=== PATIENT | male | born 1950 | race Caucasian/White ===

== ENCOUNTER 2018-02-28 08:00 | Day surgery (SDC) | payer OTHER ==
[2018-02-28] MEDS ORDERED: NS 1,000 ML IV ONE (08:06)
[2018-02-28] MEDS ORDERED: FAMOTIDINE 20 MG/NACL 50 ML IV ONE (08:06)
[2018-02-28] MEDS ORDERED: BACITRACIN IRRIGATION/NS 50,000 UNITS/1,000 ML BTL IRR ONE (08:06)
[2018-02-28] MEDS ORDERED: methylPREDNISolone SOD SUCC 125 MG/2 ML VIAL IVP ONE (08:06)
[2018-02-28] MEDS ORDERED: DIAZEPAM 5 MG TAB PO ONE (08:06)
--- NOTE | 2018-02-28 08:26 | CPEKG ---
Heart Rate: 76 RR Interval: 789 P-R Interval: 156 QRSD Interval: 164 QT Interval: 500 QTC Interval: 563 QRS [place]: 88 T Wave [place]: 264 EKG Severity - ABNORMAL ECG - EKG Impression: ATRIAL-VENTRICULAR DUAL-PACED COMPLEXES EKG Impression: NONSPECIFIC INTRAVENTRICULAR CONDUCTION DELAY EKG Impression: NONSPECIFIC ST DEPRESSION Electronically Signed By: Dmaien Alvarado 01-Mar-2018 09:29:06
[2018-02-28 08:48] LABS: PLATELET COUNT 142 10^3/uL (150-400)
[2018-02-28 08:56] LABS: INR 1.04 (0.83-1.16); PROTIME(PATIENT) 13.8 SEC (12.0-15.0)
[2018-02-28] MEDS ORDERED: VANCOMYCIN 1 GM in NS 250 ML IV ONE (09:00)
[2018-02-28] MEDS ORDERED: LIDOCAINE 1% 300 MG/30 ML SDV ONE (09:03)
[2018-02-28] MEDS ORDERED: fentaNYL 100 MCG/2 ML INJ ONE (09:03)
[2018-02-28] MEDS ORDERED: MIDAZOLAM 2 MG/2 ML VIAL ONE (09:04)
[2018-02-28] MEDS ORDERED: LIDO/EPI 1% **for epidural** 30 ML SDV ONE (09:04)
[2018-02-28] MEDS ORDERED: BUPIVACAINE 0.5% 30 ML SDV ONE (09:04)
--- NOTE | 2018-02-28 09:34 | PDHPUP ---
History & Physical Update H&P update statement: This history and physical update is based on an assessment of the patient which was completed after admission or registration (within 24 hours), but prior to the surgery/procedure. H&P update: H&P reviewed & patient examined (patients device has reached RAFA), no change in patient's condition since H&P completed
--- NOTE | 2018-02-28 09:34 | PDPROPOC ---
Sedation Plan of Care Sedation Plan of Care: vital signs stable, mental status noted, patient educated of risks, benefits, alternatives, patient can tolerate sedation ASA Classification: ASA 3 Planned drugs: fentanyl, midazolam Mallampati Score: Class 3 Mallampati Reference Image: Patient passed 3-3-2 rule?: Yes
--- NOTE | 2018-02-28 09:54 | PDGENHP ---
History & Physical Chief Complaint: device RAFA History of Present Illness: Coy is a 67-year-old male with a history of CHF, valve related cardiomyopathy, coarctation reapir, ventricular tachycardia with defibrillator, aortic valve stenosis s/p AVR, coronary artery disease. The patient is on ocean transportation intermediary anticoagulation therapy. Coy is able to exercise daily without chest pain/pressure/tightness or lightheadedness. He has not noticed a decrease in his exercise tolerence. Cyo had his device interrogated 08/12/17 that demonstrated the device was near RAFA. There were no atrial arrhythmias recorded, no ventricular arrhythmias recorded, normal pacing thersholds, normal sensing thersholds, acceptable pacing parameters. Coy needs to have a gen change. We have arranged for this to be changed while I am in the hospital Pertinent Past, Social, Family History: CHF, valve related cardiomyopathy, coarctation reapir, ventricular tachycardia with defibrillator, aortic valve stenosis s/p AVR, coronary artery disease. Relevant Physical Exam: Cardiac: The patient has a systolic murmur consistent with valve surgery. Summation S3, S4. No peripheral edema. Respiratory: Clear to auscultation bilaterally. Cardiorespiratory Assessment: Please see above.
--- NOTE | 2018-02-28 10:13 | EPPROC ---
Electrophysiology Procedure Note: PROCEDURE: MRI conditional Bi-ventricular automatic implantable cardioverter- defibrillator gen change. DATE OF PROCEDURE: 02/28/2018 EXPLANTED DEVICE: LOADING MANAGER-D [employer] Unify 3231-40, serial #[id number]. IMPLANTED DEVICE: [employer] UN[employer] ASSURA, serial #[id number]. LEADS: The right atrial lead is a Tendril SDX 1688TC/ 52 cm, serial # [id number]. The right ventricular lead is a Riata 1581, serial # [id number]. The LV lead is a QuickSite 1056T/75 cm, serial #[id number]. COMPLICATIONS: None GIS ENGINEER: Sudheer Vazquez MD INDICATION AND APPROPRIATE USE CRITERIA: The device is being replaced for RAFA alerts. The device is being used as a primary prevention. The patient has complex ventricular ectopy with reduced EF <35% and heart failure symptoms. The device was originally replaced on 08/27/2011 for second degree heart block. PROCEDURE IN DETAIL: After informed consent was obtained and n.p.o. status was confirmed, the region of the left subclavicular fossa was cleaned, prepped and draped in a sterile fashion. Approximately 30 mL of 1% lidocaine was utilized for local anesthesia. The skin was sharply incised with a #10 blade. Electrocautery and local pressure were used for hemostasis. Sharp and blunt dissection was used to access the AICD pocket overlying the pectoralis major fascia. The pocket was thoroughly flushed and checked for bleeding. Hemostasis was established and the old device was removed from the pocket. The atrial and ventricular leads set screws were loosened. The atrial lead serial number was checked and placed in the upper pole lead housing of the new pulse generator and set screw firmly applied. The procedure was repeated for the RV lead, LV lead and defibrillator coils with the bipolar set screw. RV lead threshold was tested and found to be 1.0 V at 0.5 ms width. R -wave amplitude was measured at 12 mV. Lead impedance was 390 Ohms. LV lead threshold was tested and found to be 1.25 V at 0.5 ms width. Lead impedance was 680 Ohms. Atrial lead threshold was tested at 2.75 V at 0.5 ms width. P- wave amplitude was 1.3 mV, lead impedance was 440 Ohms. Defibrillator shock impedance 47 Ohms. The device was placed in the pocket and sutured in place with #0 Ethibond. The skin was closed with a 3-layered 3-0 Vicryl, 2-0 Vicryl and 4-0 Monocryl repair with excellent wound edge opposition and hemostasis documented. The V fib zone is set at 187 BPM with ATP x 1 only if the rhythm meets stability criteria (12 cycles) otherwise the device will deliver a 36 Joule shocks x 1 cycles followed by 40 Joule x 5 if needed. The V tach zone is 166 bpm with ATP x3. The device will deliver CVRT 25 Joule shocks x1, 36 joule shocks x1, follow by 40 Joule x2 if needed. The patient returned to the post cath recovery unit in good and stable condition where a stat postoperative chest x-ray and EKG were obtained. There was no evidence of pneumothorax and the wires appeared to be in stable position. The patient returned to the post cath recovery unit in good and stable condition where a stat postoperative EKG will be obtained. FINAL IMPRESSION: Successful elective Bi-Ventricular AICD generator replacement without immediate complication. Patient Problems: Problems Problem Status Onset Left ventricular apical thrombus Acute S/P CABG x 2 Acute S/P aortic valve replacement with bioprosthetic valve Acute S/P mitral valve repair Acute Bicuspid aortic valve Chronic CAD (coronary artery disease), [place] coronary artery Chronic Nonischemic dilated cardiomyopathy Chronic Presence of automatic cardioverter/defibrillator (AICD) Chronic Secondary mitral valve insufficiency Chronic Severe aortic valve stenosis Chronic Thrombocytopenia Chronic
--- NOTE | 2018-02-28 11:35 | CPEKG ---
Heart Rate: 75 RR Interval: 800 P-R Interval: 204 QRSD Interval: 162 QT Interval: 452 QTC Interval: 505 P [place]: -41 QRS [place]: -86 T Wave [place]: -69 EKG Severity - ABNORMAL ECG - EKG Impression: ATRIAL-VENTRICULAR DUAL-PACED RHYTHM Electronically Signed By: Damien Alvarado 01-Mar-2018 09:28:57
== END 2018-02-28 13:47 | disposition home or self-care (01) ==
LOC: FCATH 08:00
PROVIDERS: ATTEND Internal Medicine Cardiovascular Disease
DX: Z45.02 Encounter for adjustment and management of automatic implantable cardiac defibrillator (principal); Z95.810 Presence of automatic (implantable) cardiac defibrillator; I25.10 Atherosclerotic heart disease of native coronary artery without angina pectoris; I50.9 Heart failure, unspecified; Z79.01 Long term (current) use of anticoagulants; Z95.2 Presence of prosthetic heart valve
CPT/HCPCS: C1882; J2250; J3010; J3370

== ENCOUNTER → 2018-04-18 | Outpatient (CLI) | payer OTHER | LOC: FIMAGING 07:05 | PROVIDERS: ATTEND Internal Medicine Cardiovascular Disease | DX: K75.9 Inflammatory liver disease, unspecified (principal); K80.20 Calculus of gallbladder without cholecystitis without obstruction ==

== ENCOUNTER → 2019-01-01 | Day surgery (SDC) | payer OTHER ==
--- NOTE | 2019-01-01 11:53 | PDPROPOC ---
Sedation Plan of Care Sedation Plan of Care: vital signs stable, mental status noted, patient educated of risks, benefits, alternatives, patient can tolerate sedation ASA Classification: ASA 3 Planned drugs: other (no sedation) Mallampati Score: Class 2 Mallampati Reference Image: Patient passed 3-3-2 rule?: Yes
--- NOTE | 2019-01-01 11:54 | PDHPUP ---
History & Physical Update H&P update statement: This history and physical update is based on an assessment of the patient which was completed after admission or registration (within 24 hours), but prior to the surgery/procedure. H&P update: H&P reviewed & patient examined, no change in patient's condition since H&P completed (pt has lead noise suspicious for fracture. needs fluoroscopy of lead to rule out fracture.)
--- NOTE | 2019-01-01 12:53 | CPIP ---
[f rep st] INVASIVE CARDIAC PROCEDURE DATE OF PROCEDURE: 01/01/2019 PROCEDURE PERFORMED: Cinefluoroscopy of a right ventricular Guilherme lead. INDICATION FOR PROCEDURE: Ventricular lead malfunction with evidence of noise on the ventricular katarzyna d. PROCEDURE IN DETAIL: After informed consent was obtained, discussing the risk of medical radiation t o patient, the patient was taken the cardiac catheterization laboratory. He was placed on the table and cinefluoroscopy in a rotating fashion was performed documenting externalization of part of the le ad near the acute margin of the heart where the normal elbow would be placed in a ventricular dual co il defibrillator lead. There was obviously externalization of part of the conductor in that region. The right atrial and right ventricular lead body do appear to be moving together during cinefluorosc opy suggestive of possible fibrotic union of those 2 leads related to scar tissue, which may compound trying to remove the ventricular lead even with a laser. Risks, benefits of the various procedures will need to be discussed. Certainly, the device lead needs to be capped at a minimum and a new lead placed to avoid shock related to an inappropriate shock related to noise noticed on the ventricular lead. FINAL IMPRESSION: Externalization of conductor of the Guilherme dual coil ventricular lead. The patient would like to wait to have this problem dealt with until after the ski season is over in approximately 3 or 4 weeks, and as long as the noise is not getting worse, I do think the device woul d deliver a shock appropriately because it does not appear that there is an interruption of the condu ctor and the way lead was built was with individual insulation around that particular wire. I did ex plain to the patient that if he enters into a ventricular fibrillation storm from the device's standp oint where the noise is lasting so long that the device charges and shocks him, that the best thing f or him to do would be to hold a magnet over the device, which would prevent the device from repetitiv aldair shocking him for noise. /[id number]/MODL
== END | disposition still patient (30) ==
LOC: FCATH 10:27
PROVIDERS: ATTEND Internal Medicine Cardiovascular Disease
PROC: B2161ZZ Fluoroscopy of Right and Left Heart using Low Osmolar Contrast (ICD-10-PCS; principal; 2019-01-01)
DX: T82.110A Breakdown (mechanical) of cardiac electrode, initial encounter (principal)